=== PATIENT | male | born 1985 | race African-American/Black ===

== ENCOUNTER 2017-03-16 13:41 | Emergency (ER) | payer MEDICAID, OTHER ==
[~2017-03-16] VITALS: Ht 162.6 cm; Wt 118.0 kg
[2017-03-16] MEDS ORDERED: NORCO (13:55)
[2017-03-16] MEDS ORDERED: AMLO10TA80 PO (13:55)
[2017-03-16] MEDS ORDERED: LISI-604 PO (13:55)
[2017-03-16] MEDS ORDERED: ALBU18HF2 IH (13:55)
[2017-03-16] MEDS ORDERED: KETOROLAC 30MG/ML VIAL IV STA (17:18)
[2017-03-16] MEDS ORDERED: SODIUM CHLORIDE 0.9% 1,000 ML IV ONE ×2 (17:18→19:45)
[2017-03-16] MEDS ORDERED: ONDANSETRON HCL 4MG/2ML VIAL IV ONE (17:30)
[2017-03-16 18:11] LABS: HEMOGLOBIN. 14.2 g/dL (14.0-18.0); MEAN CORPUSCULAR HEMOGLOBIN 28.3 pg (28.0-32.0); MEAN CORPUSCULAR VOLUME 85.6 fL (80.0-94.0); MEAN PLATELET VOLUME 8.5 fl (7.4-10.4); PLATELET 219 x1000/uL (130-400); RED BLOOD CELL COUNT 5.02 mill/uL (4.7-6.1); RED CELL DISTRIBUTION WIDTH 13.9 % (11.6-14.6)
[2017-03-16] MEDS ORDERED: ACETAMINOPHEN 325MG TABLET PO ONE (18:15)
[2017-03-16 18:16] LABS: INR 1.2; PROTHROMBIN TIME 12.6 sec (9.4-11.6)
[2017-03-16 18:31] LABS: CARBON DIOXIDE 29 mEq/L (21-32); CHLORIDE 95 mEq/L (98-107); TROPONIN I < 0.02 ng/mL (0.00-0.04)
[2017-03-16 18:59] LABS: PLATELET ESTIMATE NORMAL
[2017-03-16 20:18] VITALS: BP 109/65
[2017-03-16 20:25] LABS: CLARITY URINE CLEAR (CLEAR); COLOR URINE YELLOW (YELLOW); KETONES URINE NEGATIVE (NEGATIVE); LEUKOCYTE ESTERASE URINE NEGATIVE (NEGATIVE); NITRITE URINE NEGATIVE (NEGATIVE); OCCULT BLOOD URINE NEGATIVE (NEGATIVE); PROTEIN URINE 1+ (NEGATIVE); SPECIFIC GRAVITY URINE 1.021 (1.005-1.030)
== END 2017-03-16 21:07 | disposition home or self-care (01) ==
LOC: ER 16:03
DX: B34.9 Viral infection, unspecified (principal); R79.1 Abnormal coagulation profile
CPT/HCPCS: 36415; 71045; 80053; 81001; 83605; 84484; 85025; 85610; 87070; 87430; 87804; 93005; 96361; 96374; 96375; 99285; J1885; J2405; J7030; Z7610

== ENCOUNTER 2017-03-17 09:01 | Emergency (ER) | payer OTHER ==
[~2017-03-17] VITALS: Ht 177.8 cm; Wt 105.0 kg
[~2017-03-17 09:01] MED LIST: ALBU18HF2 IH; AMLO10TA80 PO; LISI-604 PO; NORCO
[2017-03-17] MEDS ORDERED: KETOROLAC 30MG/ML VIAL IV ONE (10:00)
[2017-03-17] MEDS ORDERED: SODIUM CHLORIDE 0.9% 1,000 ML IV ONE (10:00)
[2017-03-17 10:10] LABS: HEMATOCRIT. 38.8 % (42.0-52.0); HEMOGLOBIN. 12.6 g/dL (14.0-18.0); MEAN CORPUSCULAR HEMOGLOBIN 27.8 pg (28.0-32.0); MEAN CORPUSCULAR VOLUME 85.7 fL (80.0-94.0); MEAN PLATELET VOLUME 8.4 fl (7.4-10.4); PLATELET 194 x1000/uL (130-400); RED BLOOD CELL COUNT 4.53 mill/uL (4.7-6.1); RED CELL DISTRIBUTION WIDTH 13.6 % (11.6-14.6)
[2017-03-17 10:22] LABS: CARBON DIOXIDE 31 mEq/L (21-32); CHLORIDE 100 mEq/L (98-107)
[2017-03-17] MEDS ORDERED: ACETAMINOPHEN 500MG TABLET PO ONE (10:45)
[2017-03-17 11:11] LABS: PLATELET ESTIMATE NORMAL
[2017-03-17 12:38] VITALS: BP 121/80
== END 2017-03-17 12:46 | disposition home or self-care (01) ==
LOC: ER 09:09
DX: R50.9 Fever, unspecified (principal); R09.81 Nasal congestion; J02.9 Acute pharyngitis, unspecified; R05 Cough; M79.1 Myalgia; R06.02 Shortness of breath; R11.0 Nausea; R51 Headache; J45.909 Unspecified asthma, uncomplicated; I10 Essential (primary) hypertension; E11.9 Type 2 diabetes mellitus without complications; M10.9 Gout, unspecified
CPT/HCPCS: 36415; 71045; 80053; 85025; 87804; 93005; 96361; 96374; 99285; J1885; Z7610; J7030